=== PATIENT | male | born 1965 ===

== ENCOUNTER → 2024-12-08 | Emergency (ER) | payer SELFPAY ==
[~2024-12-08] VITALS: Ht 152.4 cm; Wt 55.8 kg
[~2024-12-08] MED LIST: HYDROMORPHONE INJ 2 MG/ML DISP.SYRIN IM ONE; IBUP-2715 PO; IBUPROFEN 400 MG TABLET PO ONE; Sodium Phosphate 15 MMOL in IV NS 0.9% 245 ML IV SCH; oxyCODONE/APAP (5/325 MG) 1 UDTAB TABLET PO ONE
[2024-12-08 03:52] LABS: CALCIUM, SERUM 9.1 mg/dL (8.5-10.1); CREATININE 0.8 mg/dL (0.6-1.3); SODIUM SERUM 142.0 mmol/L (136-145); UREA NITROGEN, BLOOD 16.0 mg/dL (7-18)
== END | disposition home or self-care (01) ==
LOC: ER 03:35
DX: S61.211A Laceration without foreign body of left index finger without damage to nail, initial encounter (principal); W25.XXXA Contact with sharp glass, initial encounter; Y93.A1 Activity, exercise machines primarily for cardiorespiratory conditioning; Y92.832 Beach as the place of occurrence of the external cause; Y99.9 Unspecified external cause status; I10 Essential (primary) hypertension
CPT/HCPCS: 36415; 80048-TC; A9563; J7050